=== PATIENT | female | born 1990 | race Caucasian/White ===

== ENCOUNTER 2019-11-08 21:29 | Emergency (ER) | payer MEDICAID ==
[~2019-11-08] VITALS: Ht 167.6 cm; Wt 66.7 kg
[2019-11-08 21:37] VITALS: Ht 167.6 cm; Wt 66.7 kg
[2019-11-08 22:00] VITALS: BP 119/79
[2019-11-08 22:40] LABS: UA SPECIFIC GRAVITY >=1.030 (1.005-1.035); microscopic required? YES; urine erythrocyte TRACE (NEGATIVE)
== END 2019-11-08 22:00 | disposition home or self-care (01) ==
LOC: ED 21:29
PROVIDERS: Emergency Medicine
DX: N39.0 Urinary tract infection, site not specified (principal)

== ENCOUNTER 2020-07-03 14:31 | Emergency (ER) | payer MEDICAID ==
[~2020-07-03] VITALS: Ht 160 cm; Wt 65.3 kg
[2020-07-03 14:44] VITALS: BP 108/67; Ht 160 cm; Wt 65.3 kg
[2020-07-03 15:02] LABS: microscopic required? NO
[2020-07-03 15:12] LABS: urine erythrocyte NEGATIVE (NEGATIVE)
== END 2020-07-03 16:28 | disposition home or self-care (01) ==
LOC: ED 14:31
PROVIDERS: Student in an Organized Health Care Education/Training Program
DX: N76.0 Acute vaginitis (principal); Z11.3 Encounter for screening for infections with a predominantly sexual mode of transmission
CPT/HCPCS: 87491; 87591